=== PATIENT | male | born 1955 | race Caucasian/White ===

== ENCOUNTER 2018-06-02 18:50 | Emergency (ER) | payer OTHER ==
--- NOTE | 2018-06-02 20:03 | EDM.PDOC ---
ED HPI GENERAL MEDICAL PROBLEM - General Chief Complaint: ENT Problem Stated Complaint: RIGHT EARACHE Time Seen by Provider: 06/02/18 18:54 Source of Information: Reports: Patient History Limitations: Reports: No Limitations - History of Present Illness INITIAL COMMENTS - FREE TEXT/NARRATIVE: Pain in RT ear for 3 days. Seen clinic 2 days ago. RX Neomycin... drops began Monday. worse today. Feels feverish. Ear swollen pain shooting into scalp and neck. Otherwise healthy. right ear Pain Score (Numeric/FACES): 1 - Related Data Allergies Allergy/AdvReac Type Severity Reaction Status Date / Time Beta-Blockers Allergy Cough Verified 06/02/18 19:12 (Beta-Adrenergic Bloc Home Meds: Home Meds Aspirin 06/02/18 [History] Carvedilol [Coreg] 06/02/18 [History] Fenofibrate,Micronized [Fenofibrate] 06/02/18 [History] Omeprazole 06/02/18 [History] Polymyxin B/Trimethoprim [PolyTrim Ophth Soln] 06/02/18 [History] Ranitidine HCl [Ranitidine] 06/02/18 [History] atorvaSTATin [Lipitor] 06/02/18 [History] Past Medical History Cardiovascular History: Reports: ME - Past Surgical History HEENT Surgical History: Reports: Tonsillectomy Cardiovascular Surgical History: Reports: Valve Replacement Musculoskeletal Surgical History: Reports: Shoulder Surgery Social & Family History - Tobacco Use Smoking Status *Q: Never Smoker ED ROS ENT - Review of Systems Review Of Systems: ROS reveals no pertinent complaints other than HPI. ED EXAM, ENT - Physical Exam Exam: See Below Exam Limited By: No Limitations General Appearance: Alert, WD/WN, Mild Distress Eye Exam: Bilateral Eye: Normal Inspection Ears: Other (Seft ear all normal. Rt ear uniformly reddened and swollen mildly. No definite extension to scalp of face. Tender to touch. Warm. Canal wet but not obviously inflammed.) Course - Vital Signs Last Recorded V/S: Last Vital Signs Temp 37.6 C 06/02/18 19:22 Pulse 47 L 06/02/18 19:22 Resp 14 06/02/18 19:22 BP 112/51 L 06/02/18 19:22 Pulse Ox 98 06/02/18 19:22 Departure - Departure Time of Disposition: 20:00 Disposition: Home, Self-Care 01 Clinical Impression: Cellulitis of ear - Discharge Information Referrals: PCP,None [Primary Care Provider] - Additional Instructions: Take the antibiotic Augmentin 875 one tablet twice daily for 1 week. You should see improvement by 48 hours. If it continues to get worse however return to the ER. Continue the drops.
== END 2018-06-02 20:36 | disposition home or self-care (01) ==
LOC: JP.ED 18:50
DX: H60.11 Cellulitis of right external ear (principal); Z79.82 Long term (current) use of aspirin; Z79.899 Other long term (current) drug therapy; Z88.8 Allergy status to other drugs, medicaments and biological substances
CPT/HCPCS: 99283